=== PATIENT | female | born 2000 | race Caucasian/White ===

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

== ENCOUNTER 2021-08-23 17:27 | Emergency (ER) | payer OTHER | END 2021-08-23 19:39 | disposition home or self-care (01) | LOC: ERS 17:27 | DX: F19.980 Other psychoactive substance use, unspecified with psychoactive substance-induced anxiety disorder (principal); E03.9 Hypothyroidism, unspecified; F17.290 Nicotine dependence, other tobacco product, uncomplicated | CPT/HCPCS: 93005; 99283 ==

== ENCOUNTER 2023-09-19 21:33 | Emergency (ER) | payer OTHER | END 2023-09-19 23:00 | LOC: ERS 21:33 → EEVIPCON 21:33 → ERS 23:00 | DX: S01.511A Laceration without foreign body of lip, initial encounter (principal); F17.210 Nicotine dependence, cigarettes, uncomplicated; Y04.8XXA Assault by other bodily force, initial encounter | CPT/HCPCS: 70450; 72170 ==